=== PATIENT | female | born 1995 | race Two or more races ===

== ENCOUNTER 2025-03-04 00:49 | Emergency (ER) | payer OTHER ==
[~2025-03-04] VITALS: Ht 157.5 cm; Wt 52.2 kg
[2025-03-04] MEDS ORDERED: GUAIFENESIN/DEXTROMETHORPHAN 100MG/10ML BLIST.PACK PO ONE (02:00)
[2025-03-04] MEDS ORDERED: DEXAMETHASONE SODIUM PHOSPHATE 4 MG/ML VIAL IM ONE (02:00)
[2025-03-04] MEDS ORDERED: KETOROLAC TROMETHAMINE 60 MG VIAL IM ONE (02:00)
[2025-03-04 02:39] LABS: BASO % 0.4 % (0.1-1.2); EOS # 0.20 (0.04-0.54); EOS % 3.7 % (0.7-7.0); LYMPH # 0.94 (1.18-3.74); LYMPH % 17.5 % (19.3-53.1); MEAN PLATELET VOLUME 9.50 fl (9.4-12.4); MONO # 0.82 (0.24-0.82); NEUT # 3.38 (1.56-6.13); NEUT % 62.9 % (34.0-71.1); RED CELL DISTRIBUTION WIDTH 12.1 % (11.6-14.4)
[2025-03-04 02:53] LABS: MONO % 15.3 % (4.7-12.5)
[2025-03-04 02:54] LABS: COVID-19 AG POSITIVE (NEGATIVE)
[2025-03-04] MEDS ORDERED: PAXLOVID 300-11 EAC1 PO (02:55)
[2025-03-04] MEDS ORDERED: TUSNEL LIQUID178 ML PO (02:55)
[2025-03-04] MEDS ORDERED: PROAIR RESPICL90 MCG IH (02:55)
== END 2025-03-04 03:01 | disposition home or self-care (01) ==
LOC: ER 01:48
PROVIDERS: General Practice
DX: U07.1 COVID-19 (principal)